=== PATIENT | female | born 1965 | race American Indian/Alaskan Native ===

== ENCOUNTER 2016-10-28 08:39 | Day surgery (SDC) | payer OTHER ==
[2016-10-28 10:11] VITALS: O2SAT 100
[2016-10-28] MEDS ORDERED: Propofol 10 mg/ml Inj (20 ML) ONE ×2 (10:50→10:56)
[2016-10-28] MEDS ORDERED: Midazolam 2 MG/2 ML VIAL ONE (10:56)
[2016-10-28 11:54] VITALS: TEMP 98.7
[2016-10-28 12:42] VITALS: BP 90/60; PULSE 66; RESP 12
== END 2016-10-28 12:41 | disposition home or self-care (01) ==
LOC: C.ENDO 08:39
PROVIDERS: ATTEND Internal Medicine
DX: Z12.11 Encounter for screening for malignant neoplasm of colon (principal); Q43.8 Other specified congenital malformations of intestine; K64.8 Other hemorrhoids
CPT/HCPCS: 45378; 84703; J2250; J2704